=== PATIENT | female | born 1995 | race Caucasian/White ===

== ENCOUNTER 2023-12-16 11:46 | Emergency (ER) | payer SELFPAY ==
[2023-12-16] MEDS ORDERED: AMLODIPINE 10 MG TAB ONE (12:35)
[2023-12-16] MEDS ORDERED: lisinopriL 10 MG TAB ONE ×2 (12:35→14:16)
[2023-12-16 12:37] LABS: Absolute Eosinophils 0.3 K/uL (0-0.5); Absolute Lymphocytes (CBC) 2.2 K/uL (0.7-4.9); Absolute Monocytes 0.5 K/uL (0.1-1.3); Absolute Neutrophil 6.1 K/uL (1.8-8.0); Basophils % 0.5 % (0-1.3); Eosinophils % 2.9 % (0-4.4); Hematocrit 38.9 % (36.0-45.0); Hemoglobin 12.9 g/dL (12.0-15.0); MCH 28.3 pg (27.0-35.0); MCV 85.6 fL (80-100); MPV 8.7 fL (7.6-11.3); Monocytes % 5.3 % (3.3-12.3); Neutrophils % 67.3 % (41.7-73.7); Platelets 319 thou/uL (152-406); RBC Red Blood Cell Count 4.55 M/uL (3.86-4.86); Red Cell Distribution Width 13.2 % (12.1-15.2); Specific Gravity 1.014 (1.005-1.030)
[2023-12-16 12:39] LABS: PT Prothrombin Time 11.7 SECONDS (9.5-12.5); Protime INR 1.07
[2023-12-16 12:49] LABS: Specific Gravity 1.014 (1.005-1.030); Sqamous Epithelial <5 /HPF (None Seen); Urine Bacteria None Seen /HPF (<20); Urine Bilirubin NEGATIVE (Negative); Urine Blood Negative (Negative); Urine Clarity Extremely Turbid (Clear); Urine Color Light-Yellow (Yellow); Urine Culture Reflex Order NOT NEEDED; Urine Glucose NEGATIVE (Negative); Urine Ketones NEGATIVE (Negative); Urine Microscopic Reflex YN ORDER UMIC; Urine Mucus Slight /HPF (None Seen); Urine Nitrite NEGATIVE (Negative); Urine Protein NEGATIVE (Negative); Urine RBC <5 /HPF (None Seen); Urine Urobilinogen Normal (Normal); Urine WBC <5 /HPF (<5); Urine pH 7.5 (5.0-7.0)
[2023-12-16 12:52] LABS: ALT/SGPT 22 U/L (13-56); AST/SGOT 15 U/L (15-37); Albumin 3.7 g/dL (3.4-5.0); Albumin/Globulin Ratio 1.2 (1.1-1.8); Alkaline Phosphatase 60 U/L (45-117); Anion Gap 5.8 mEq/L (5.0-15.0); BUN Blood Urea Nitrogen 8 mg/dL (7-18); Bicarbonate 30 mEq/L (21-32); Bilirubin Total 0.3 mg/dL (0.2-1.0); Globulin 3.2 g/dL (2.3-3.5); Glomerular Filtration Rate 102 ml/min (=/>90); Glucose Level 95 mg/dL (74-106); Magnesium 2.2 mg/dL (1.6-2.4); NT PRO-BNP 134 pg/mL (<125); Potassium 3.8 mEq/L (3.5-5.1); Protein, Total 6.9 g/dL (6.4-8.2); Sodium Level 139 mEq/L (136-145); Troponin High Sensitivity 3.7 pg/mL (<58.9)
[2023-12-16 12:58] LABS: Bilirubin Direct < 0.2 mg/dL (0-0.2); Bilirubin Indirect, Calculated 0.1 mg/dL (0.2-0.8)
[2023-12-16] MEDS ORDERED: KETOROLAC 30 MG/ML INJ ONE (14:01)
--- NOTE | 2023-12-16 14:27 | ER ---
Nurse's Notes [facility] Name: Garcia Mosley Age: 28 yrs Sex: Female : 1995 Arrival Date: 12/16/2023 Time: 11:46 Bed 23 Private MD: Diagnosis: Essential (primary) hypertension;Headache Presentation: 12/15 11:51 Chief complaint: EMS states: Called to patient's home due to patient having high blood cm10 pressure. Pt has a history of HTN and has not taken her lisinopril in the last year. Pt reports having a headache. pt took tylenol and ibuprofen and her headache has improved. Coronavirus screen: Client denies travel out of the [place] in the last 14 days. At this time, the client does not indicate any symptoms associated with coronavirus-19. Ebola Screen: Patient denies travel to an Ebola-affected area in the 21 days before illness onset. No symptoms or risks identified at this time. Initial Sepsis Screen: Does the patient meet any 2 criteria? No. Patient's initial sepsis screen is negative. Does the patient have a suspected source of infection? No. Patient's initial sepsis screen is negative. Risk Assessment: Do you want to hurt yourself or someone else? Patient reports no desire to harm self or others. Onset of symptoms was December 16, 2023. 11:51 Method Of Arrival: EMS: [facility] 11:51 Acuity: BECCA 3 cm10 11:55 Care prior to arrival: Medication(s) given: Normal saline infusion, Nitroglycerin, 0.4 cm10 mg SL x 1, IV initiated. 20 GA, in the left antecubital area. 11:59 Transition of care: [facility]. 10 Triage Assessment: 11:55 General: Appears in no apparent distress. comfortable, Behavior is calm, cooperative. cm10 Pain: Complains of pain in head Pain currently is 2 out of 10 on a pain scale. Neuro: No deficits noted. Level of Consciousness is awake, alert, obeys commands, Oriented to person, place, time, situation, Appropriate for age. Respiratory: No deficits noted. Airway is patent Respiratory effort is even, unlabored, Respiratory pattern is regular, symmetrical. Derm: No deficits noted. No signs and/or symptoms reported regarding the dermatologic system. Skin is healthy with good turgor, Skin is pink, warm \T\ dry. Musculoskeletal: No deficits noted. Range of motion: intact in all extremities. 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 - Infectious Disease History:: Denies. - Social history:: Smoking status: Patient denies any tobacco usage or history of. Screenin:58 [facility] ED Fall Risk Assessment (Adult) History of falling in the last 3 months, cm10 including since admission No falls in past 3 months (0 pts) Confusion or Disorientation No (0 pts) Intoxicated or Sedated No (0 pts) Impaired Gait No (0 pts) Mobility Assist Device Used No (0 pt) Altered Elimination No (0 pt) Score/Fall Risk Level 0 - 2 = Low Risk Oriented to surroundings, Maintained a safe environment, Hourly rounding (assess needs \T\ fall precautionary measures) done. Abuse screen: Denies threats or abuse. Denies injuries from another. Nutritional screening: No deficits noted. Tuberculosis screening: No symptoms or risk factors identified. Assessment: 11:57 Cardiovascular: Heart tones present. Respiratory: Breath sounds are clear bilaterally. cm10 12:24 Cardiovascular: Denies chest pain, shortness of breath, Rhythm is sinus rhythm. cm10 13:25 Reassessment: Patient appears in no apparent distress at this time. No changes from cm10 previously documented assessment. Patient and/or family updated on plan of care and expected duration. Pain level reassessed. Patient is alert, oriented x 3, equal unlabored respirations, skin warm/dry/pink. 13:45 Reassessment: Pt complaining of head pain at this time. Pt rates pain a 5. Provider cm10 made aware. 14:31 Reassessment: Patient appears in no apparent distress at this time. No changes from cm10 previously documented assessment. Patient and/or family updated on plan of care and expected duration. Pain level reassessed. Patient is alert, oriented x 3, equal unlabored respirations, skin warm/dry/pink. Patient states symptoms have improved. Vital Signs: 11:51 BP 181 / 110; Pulse 82; Resp 18; Temp 98.3; Pulse Ox 100% on R/A; Weight 67.13 kg; cm10 Height 5 ft. 7 in. ; Pain 2/10; 12:15 BP 134 / 101; Pulse 75; Resp 16; Pulse Ox 100% on R/A; cm10 13:00 BP 152 / 103; Pulse 87; Resp 18; Pulse Ox 100% on R/A; cm10 13:30 BP 162 / 96; Pulse 101; Resp 18; Pulse Ox 99% ; cm10 14:00 BP 142 / 97; Pulse 79; Resp 18; Pulse Ox 99% on R/A; cm10 11:51 Body Mass Index 23.18 (67.13 kg, 170.18 cm) cm10 11:51 Pain Scale: Adult cm10 Vitals: 12:23 Cardiac Rhythm Assessment Regular Sinus rhythm. cm10 [place] Coma Score: 14:22 Eye Response: spontaneous(4). Motor Response: obeys commands(6). Verbal Response: darline oriented(5). Total: 15. 14:24 Eye Response: spontaneous(4). Motor Response: obeys commands(6). Verbal Response: darline oriented(5). Total: 15. NIH Stroke Scale Scores: 14:24 NIHSS Score: 0 darline ED Course: 11:49 Patient arrived in ED. cm10 11:53 Triage completed. cm10 11:55 Arm band placed on Patient placed in an exam room, on a stretcher. cm10 11:57 Anatoliy Dang MD is Attending Physician. darline 11:58 Bed in low position. Call light in reach. Side rails up X2. Pulse ox on. NIBP on. cm10 12:02 Joseline Alonzo, RN is Primary Nurse. cm10 12:23 Basic Metabolic Panel Sent. cm10 12:23 CBC with Diff Sent. cm10 12:23 LFT's Sent. cm10 12:23 Magnesium Sent. cm10 12:23 NT PRO-BNP Sent. cm10 12:23 PT-INR Sent. cm10 12:23 Troponin HS Sent. cm10 12:23 Maintain EMS IV. Dressing intact. Good blood return noted. Site clean \T\ dry. Gauge \T\ cm 10 site: 20G, Left AC.. IV is patent, is intact. 13:45 Patient requests pain medication. cm10 14:15 ED physician to see patient. cm10 14:24 Master Haynes DO is Referral Physician. darline 14:31 No provider procedures requiring assistance completed. cm10 14:31 IV discontinued, intact, bleeding controlled, No redness/swelling at site. Pressure cm10 dressing applied. 14:32 Provided Education on: Follow-up and importance of monitoring blood pressure.. cm10 Administered Medications: 12:23 Drug: NS 0.9% IV 1000 ml IV at 125 ml/hr continuous Route: IV; Rate: 125 ml/hr; Site: cm10 left antecubital; 14:33 Follow up: Response: No adverse reaction; IV Status: Completed infusion; IV Intake: cm10 200ml 12:31 Not Given (Duplicate Order): [id number] mg PO once darline 12:37 Drug: Norvasc PO 10 mg PO once Route: PO; cm10 14:19 Follow up: Response: No adverse reaction cm10 12:37 Drug: Lisinopril PO 10 mg PO once Route: PO; cm10 14:19 Follow up: Response: No adverse reaction cm10 14:03 Drug: Ketorolac IVP 30 mg IVP once Route: IVP; Site: left antecubital; cm10 14:19 Follow up: Response: No adverse reaction cm10 14:19 Drug: Lisinopril PO 10 mg PO once Route: PO; cm10 14:33 Follow up: Response: No adverse reaction cm10 Medication: 11:58 VIS not applicable for this client. cm10 Intake: 14:33 IV: 200ml; Total: 200ml. cm10 Outcome: 14:26 Discharge ordered by . darline 14:32 Discharged to home ambulatory, cm10 14:32 Condition: good 14:32 Discharge instructions given to patient, Instructed on discharge instructions, follow up and referral plans. medication usage, Demonstrated understanding of instructions, follow-up care, medications, Prescriptions given X 2, 14:33 Patient left the ED. cm10 NIH Stroke Scale - NIH Stroke Score Date: 12/16/2023 Time: 14:24 Total Score = 0 10. Dysarthria (speech clarity - read or repeat words) - 0(Normal) 11. Extinction and Inattention (visual/tactile/auditory/spatial/personal) - 0(No abnormality) 1a. Level of Consciousness (LOC) - 0(Alert) 1b. Level of Consciousness (LOC) (Month \T\ Age) - 0(Both) 1c. LOC Commands (Open \T\ Closes Eyes/Public Health Nurse) - 0(Both) 2. Best Gaze (Lateral Gaze Paresis) - 0(Normal) 3. Visual Field Loss - 0(No visual loss) 4. Facial Palsy - 0(Normal) 5a. Left Arm: Motor (10-second hold) - 0(No drift) 5b. Right Arm: Motor (10-second hold) - 0(No drift) 6a. Left Leg: Motor (5-second hold - always test supine) - 0(No drift) 6b. Right Leg: Motor (5-second hold - always test supine) - 0(No drift) 7. Limb Ataxia (finger/nose \T\ heel/dexter - test with eyes open) - 0(Absent) 8. Sensory Loss (pinprick arms/legs/face) - 0(Normal) 9. Best Language: Aphasia (description/naming/reading) - 0(No aphasia) Initials: darline Signatures: Anatoliy Dang MD MD cha Martinez, Clarissa, RN RN cm10 Corrections: (The following items were deleted from the chart) 11:55 11:54 Home Meds: None; cm10 cm10
--- NOTE | 2023-12-16 14:27 | EDPHYS ---
Physician Documentation [facility] Name: Garcia Mosley Age: 28 yrs Sex: Female : 1995 Arrival Date: 12/16/2023 Time: 11:46 Bed 23 Private MD: ED Physician Anatoliy Dang HPI: 12/15 14:20 This 28 yrs old Female presents to ER via EMS with complaints of High Blood darline Pressure. 14:20 The patient has elevated blood pressure and discovered this at home, with a home darline device. Onset: The symptoms/episode began/occurred 4 week(s) ago. Modifying factors: The symptoms are aggravated by activity, The symptoms are alleviated by remaining still. Associated signs and symptoms: The patient has no apparent associated signs or symptoms. Severity of symptoms: At its worst the blood pressure was moderate, in the emergency department the blood pressure is unchanged. The patient has experienced similar episodes in the past, multiple times. 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 - Infectious Disease History:: Denies. - Social history:: Smoking status: Patient denies any tobacco usage or history of. ROS: 14:21 Constitutional: Negative for fever, chills, and weight loss, Eyes: Negative for injury, darline pain, redness, and discharge, ENT: Negative for injury, pain, and discharge, Neck: Negative for injury, pain, and swelling, Cardiovascular: Negative for chest pain, palpitations, and edema, Respiratory: Negative for shortness of breath, cough, wheezing, and pleuritic chest pain, Abdomen/GI: Negative for abdominal pain, nausea, vomiting, diarrhea, and constipation, Back: Negative for injury and pain, : Negative for injury, bleeding, discharge, and swelling, MS/Extremity: Negative for injury and deformity, Skin: Negative for injury, rash, and discoloration, Psych: Negative for depression, anxiety, suicide ideation, homicidal ideation, and hallucinations, Allergy/Immunology: Negative for hives, rash, and allergies, Endocrine: Negative for neck swelling, polydipsia, polyuria, polyphagia, and marked weight changes, Hematologic/Lymphatic: Negative for swollen nodes, abnormal bleeding, and unusual bruising, 14:21 Neuro: Positive for headache, Exam: 14:21 Constitutional: This is a well developed, well nourished patient who is awake, alert, darline and in no acute distress. Head/Face: Normocephalic, atraumatic. Eyes: Pupils equal round and reactive to light, extra-ocular motions intact. Lids and lashes normal. Conjunctiva and sclera are non-icteric and not injected. Cornea within normal limits. Periorbital areas with no swelling, redness, or edema. ENT: Nares patent. No nasal discharge, no septal abnormalities noted. Tympanic membranes are normal and external auditory canals are clear. Oropharynx with no redness, swelling, or masses, exudates, or evidence of obstruction, uvula midline. Mucous membranes moist. Neck: Trachea midline, no thyromegaly or masses palpated, and no cervical lymphadenopathy. Supple, full range of motion without nuchal rigidity, or vertebral point tenderness. No Meningismus. Chest/axilla: Normal chest wall appearance and motion. Nontender with no deformity. No lesions are appreciated. Cardiovascular: Regular rate and rhythm with a normal S1 and S2. No gallops, murmurs, or rubs. Normal PMI, no JVD. No pulse deficits. Respiratory: Lungs have equal breath sounds bilaterally, clear to auscultation and percussion. No rales, rhonchi or wheezes noted. No increased work of breathing, no retractions or nasal flaring. Abdomen/GI: Soft, non-tender, with normal bowel sounds. No distension or tympany. No guarding or rebound. No evidence of tenderness throughout. Back: No spinal tenderness. No costovertebral tenderness. Full range of motion. Skin: Warm, dry with normal turgor. Normal color with no rashes, no lesions, and no evidence of cellulitis. MS/ Extremity: Pulses equal, no cyanosis. Neurovascular intact. Full, normal range of motion. Neuro: Awake and alert, GCS 15, oriented to person, place, time, and situation. Cranial nerves II-XII grossly intact. Motor strength 5/5 in all extremities. Sensory grossly intact. Cerebellar exam normal. Normal gait. Psych: Awake, alert, with orientation to person, place and time. Behavior, mood, and affect are within normal limits. 14:21 ECG was reviewed by the Attending Physician. Vital Signs: 11:51 BP 181 / 110; Pulse 82; Resp 18; Temp 98.3; Pulse Ox 100% on R/A; Weight 67.13 kg; cm10 Height 5 ft. 7 in. ; Pain 2/10; 12:15 BP 134 / 101; Pulse 75; Resp 16; Pulse Ox 100% on R/A; cm10 13:00 BP 152 / 103; Pulse 87; Resp 18; Pulse Ox 100% on R/A; cm10 13:30 BP 162 / 96; Pulse 101; Resp 18; Pulse Ox 99% ; cm10 14:00 BP 142 / 97; Pulse 79; Resp 18; Pulse Ox 99% on R/A; cm10 11:51 Body Mass Index 23.18 (67.13 kg, 170.18 cm) cm10 11:51 Pain Scale: Adult cm10 NIH Stroke Scale Scores: 14:24 NIHSS Score: 0 darline [place] Coma Score: 14:22 Eye Response: spontaneous(4). Motor Response: obeys commands(6). Verbal Response: darline oriented(5). Total: 15. 14:24 Eye Response: spontaneous(4). Motor Response: obeys commands(6). Verbal Response: darline oriented(5). Total: 15. MDM: 11:57 Patient medically screened. darline 14:22 Differential diagnosis: cluster headache, hypertensive crisis, Malignant HTN, darline intracerebral hemorrhage, hyponatremia, migraine, sinusitis, subarachnoid bleed, subdural hematoma, temporal arteritis, tension headache, vasomotor headache. Data reviewed: vital signs, nurses notes, lab test result(s), EKG, radiologic studies, plain films. Consideration of Admission/Observation Escalation of care including admission/observation considered. I considered the following discharge prescriptions or medication management in the emergency department Medications were administered in the Emergency Department. See MAR. Independent interpretation of the following test(s) in the Emergency Department EKG: See my EKG interpretation above. Test considered but Not performed: CT: NO CT HEAD. Historians other than the Patient: PT WELL INFORMED. Care significantly affected by the following chronic conditions: Hypertension, SUBSTANCE ABUSE. 12/15 11:59 Order name: Basic Metabolic Panel; Complete Time: 14:12 darline 12/15 11:59 Order name: CBC with Diff; Complete Time: 14:12 [facility] 12/15 11:59 Order name: LFT's; Complete Time: 14:12 [facility] 12/15 11:59 Order name: Magnesium; Complete Time: 14:12 [facility] 12/15 11:59 Order name: NT PRO-BNP; Complete Time: 14:12 [facility] 12/15 11:59 Order name: PT-INR; Complete Time: 14:12 [facility] 12/15 11:59 Order name: Troponin HS; Complete Time: 14:12 [facility] 12/15 11:59 Order name: Urinalysis w/ reflexes; Complete Time: 14:12 [facility] 12/15 11:59 Order name: PREGU; Complete Time: 14:12 [facility] 12/15 11:59 Order name: EKG; Complete Time: 11:59 [facility] 12/15 11:59 Order name: Cardiac monitoring; Complete Time: 12:11 [facility] 12/15 11:59 Order name: EKG - Nurse/Tech; Complete Time: 12:12 [facility] 12/15 11:59 Order name: IV Saline Lock; Complete Time: 12:12 [facility] 12/15 11:59 Order name: Labs collected and sent; Complete Time: 12:12 [facility] 12/15 11:59 Order name: O2 Per Protocol; Complete Time: 12:12 [facility] 12/15 11:59 Order name: O2 Sat Monitoring; Complete Time: 12:12 [facility] EC:21 Rate is 79 beats/min. Rhythm is regular. QRS [place] is Normal. [place] interval is normal. QRS darline interval is normal. QT interval is normal. No Q waves. T waves are Normal. No ST changes noted. Clinical impression: Normal ECG and No evidence of ischemia. Interpreted by me. Reviewed by me. Administered Medications: 12:23 Drug: NS 0.9% IV 1000 ml IV at 125 ml/hr continuous Route: IV; Rate: 125 ml/hr; Site: cm10 left antecubital; 14:33 Follow up: Response: No adverse reaction; IV Status: Completed infusion; IV Intake: cm10 200ml 12:31 Not Given (Duplicate Order): [id number] mg PO once darline 12:37 Drug: Norvasc PO 10 mg PO once Route: PO; cm10 14:19 Follow up: Response: No adverse reaction cm 12:37 Drug: Lisinopril PO 10 mg PO once Route: PO; cm10 14:19 Follow up: Response: No adverse reaction cm10 14:03 Drug: Ketorolac IVP 30 mg IVP once Route: IVP; Site: left antecubital; cm10 14:19 Follow up: Response: No adverse reaction cm10 14:19 Drug: Lisinopril PO 10 mg PO once Route: PO; cm10 14:33 Follow up: Response: No adverse reaction cm10 Disposition Summary: 12/16/23 14:26 Discharge Ordered Notes: Location: Home darline Problem: new darline Symptoms: have improved darline Condition: Stable darline Diagnosis - Essential (primary) hypertension darline - Headache darline Followup: darline - With: Private Physician - When: 2 - 3 days - Reason: Recheck today's complaints, Continuance of care, Re-evaluation by your physician Followup: darline - With: Master Haynes DO - When: 2 - 3 days - Reason: Recheck today's complaints, Re-evaluation by your physician Discharge Instructions: - Discharge Summary Sheet darline - Hypertension, Adult darline - Hypertension, Adult, Xkyw-og-[id number] darline - How to Take Your Blood Pressure, [id number] darline - Managing Your Hypertension darline Forms: - Medication Reconciliation Form darline - Antibiotic Education darline - Prescription Opioid Use darline - Patient Portal Instructions [facility] - Leadership Thank You Letter [facility] Prescriptions: - Norvasc 5 mg Oral Tablet - take 1 tablet ORAL route once daily; 20 tablet; Refills: 0, Product Selection darline Permitted - Lisinopril 10 mg Oral Tablet - take 1 tablet ORAL route once daily; 20 tablet; Refills: 0, Product Selection darline Permitted NIH Stroke Scale - NIH Stroke Score Date: 12/16/2023 Time: 14:24 Total Score = 0 10. Dysarthria (speech clarity - read or repeat words) - 0(Normal) 11. Extinction and Inattention (visual/tactile/auditory/spatial/personal) - 0(No abnormality) 1a. Level of Consciousness (LOC) - 0(Alert) 1b. Level of Consciousness (LOC) (Month \T\ Age) - 0(Both) 1c. LOC Commands (Open \T\ Closes Eyes/Mother Repairer) - 0(Both) 2. Best Gaze (Lateral Gaze Paresis) - 0(Normal) 3. Visual Field Loss - 0(No visual loss) 4. Facial Palsy - 0(Normal) 5a. Left Arm: Motor (10-second hold) - 0(No drift) 5b. Right Arm: Motor (10-second hold) - 0(No drift) 6a. Left Leg: Motor (5-second hold - always test supine) - 0(No drift) 6b. Right Leg: Motor (5-second hold - always test supine) - 0(No drift) 7. Limb Ataxia (finger/nose \T\ heel/dexter - test with eyes open) - 0(Absent) 8. Sensory Loss (pinprick arms/legs/face) - 0(Normal) 9. Best Language: Aphasia (description/naming/reading) - 0(No aphasia) Initials: darline Signatures: Dispatcher [employer] Anatoliy Oconnor MD MD cha Martinez, Clarissa, RN RN cm10 Corrections: (The following items were deleted from the chart) 11:55 11:54 Home Meds: None; cm10 cm10
[2023-12-16 15:16] VITALS: BP 142/97; TEMP 98.3; O2SAT 99
--- NOTE | 2023-12-19 11:53 | EKG ---
Test Date: 2023-12-16 Test Time: 12:07:34 Steam Roller Operator: SANTIAGO MEASUREMENT RESULTS: Intervals: Rate: 79 CO: 144 QRSD: 84 QT: 396 QTc: 454 [place]: P: 72 CO: 144 QRS: 82 T: 78 INTERPRETIVE STATEMENTS: Normal sinus rhythm Normal ECG No previous ECG available for comparison Electronically Signed On 12-19-23 11:49:37 CDT by Dmitriy Márquez
== END 2023-12-16 14:33 | disposition home or self-care (01) ==
LOC: ER 11:46
DX: I10 Essential (primary) hypertension (principal); R51.9 Headache, unspecified
CPT/HCPCS: 36415; 80048; 80076; 81001; 81025; 83735; 83880; 84484; 85025; 85610; 93005; 96361; 96374; 99284